=== PATIENT | female | born 1935 | race Caucasian/White ===

== ENCOUNTER 2018-08-23 09:53 | Outpatient (CLI) | payer MEDICARE, BC | END 2018-08-23 09:54 | disposition home or self-care (01) | LOC: BICMAMMO 09:53 | PROVIDERS: ATTEND Internal Medicine | DX: Z12.31 Encounter for screening mammogram for malignant neoplasm of breast (principal); M81.0 Age-related osteoporosis without current pathological fracture; M85.89 Other specified disorders of bone density and structure, multiple sites | CPT/HCPCS: 77063; 77067; 77080 ==

== ENCOUNTER 2018-09-01 10:54 | Outpatient (CLI) | payer MEDICARE, BC ==
--- NOTE | 2018-09-01 12:28 | RAD ---
RIGHT HP 2 VIEWS: HISTORY: Right hip pain. Trochanteric bursitis of the right hip. FINDINGS/IMPRESSION: There are mild degenerative changes in the right hip. No fracture, dislocation, or bony destruction is seen. POS: MICHELE
--- NOTE | 2018-09-01 13:20 | RAD ---
RADIOGRAPH THORACIC SPINE 2 VIEWS: DATE: 09/01/2018. HISTORY: An 82-year-old female with other specified dorsapathies thoracic, M53.84. COMPARISON: None. FINDINGS: There is diffuse osteopenia. There is mild lateral curvature. There is no high-grade collapse of an y of the thoracic vertebral bodies. There are multilevel degenerative disk changes at several levels . IMPRESSION: 1. No evidence of compression fracture. 2. Predominantly mild multilevel degenerative disk changes. 3. Osteopenia. POS: C
== END 2018-09-01 10:55 | disposition home or self-care (01) ==
LOC: BICRAD 10:54
PROVIDERS: ATTEND Internal Medicine Rheumatology
DX: M53.84 Other specified dorsopathies, thoracic region (principal); M70.61 Trochanteric bursitis, right hip; M51.34 Other intervertebral disc degeneration, thoracic region; M85.80 Other specified disorders of bone density and structure, unspecified site; M16.11 Unilateral primary osteoarthritis, right hip
CPT/HCPCS: 72070

== ENCOUNTER 2021-02-19 15:35 | Outpatient (CLI) | payer MEDICARE, BC | END 2021-02-19 15:36 | disposition home or self-care (01) | LOC: BICMAMMO 15:35 | PROVIDERS: ATTEND Internal Medicine Rheumatology | DX: M81.0 Age-related osteoporosis without current pathological fracture (principal); M85.88 Other specified disorders of bone density and structure, other site | CPT/HCPCS: 77080 ==

== ENCOUNTER 2021-03-24 12:37 | Emergency (ER) | payer MEDICARE, BC | END 2021-03-24 17:10 | disposition home or self-care (01) | LOC: ERS 12:37 | DX: S02.40FA Zygomatic fracture, left side, initial encounter for closed fracture (principal); S02.40DA Maxillary fracture, left side, initial encounter for closed fracture; S02.32XA Fracture of orbital floor, left side, initial encounter for closed fracture; W19.XXXA Unspecified fall, initial encounter | CPT/HCPCS: 70450; 70486 ==

== ENCOUNTER 2023-09-23 15:35 | Outpatient (CLI) | payer MEDICARE, BC | END 2023-09-23 15:36 | disposition home or self-care (01) | LOC: BICMAMMO 15:35 | PROVIDERS: ATTEND Internal Medicine Rheumatology | DX: M81.0 Age-related osteoporosis without current pathological fracture (principal) | CPT/HCPCS: 77080 ==

== ENCOUNTER 2024-01-17 11:07 | Inpatient (IN) | payer BC, MEDICARE ==
[2024-01-17] MEDS ORDERED: Morphine 2 MG/ML VIAL SLOW IVP PRN (11:49)
[2024-01-17] MEDS ORDERED: Ondansetron ODT 4 MG TAB PO PRN (11:49)
[2024-01-17] MEDS ORDERED: Dextrose 50% Abboject 50 ML SYRINGE SLOW IVP PRN (11:49)
[2024-01-17] MEDS ORDERED: Glucagon 1 MG/ML KIT IM PRN (11:49)
[2024-01-17] MEDS ORDERED: Dextrose 5% in Water 1,000 ML IV PRN (11:49)
[2024-01-17 11:54] LABS: #Basophils 0.1 thou/uL (0.0-0.2); #Eosinphils 0.1 thou/uL (0.0-0.7); #Monocytes 1.1 thou/uL (0.11-0.59); #Neutrophils 10.7 thou/uL (1.40-6.50); %Basophils 0.4 % (0.0-1.0); %Lymphocytes 5.3 % (21.0-51.0); %Monocytes 8.4 % (0.0-10.0); %Neutrophils 84.7 % (42.0-75.0); Hematocrit 40.6 % (36.0-47.0); Hemoglobin 13.2 g/dL (12.0-16.0); Mean Corpuscular HGB CONC 32.5 g/dL (32.0-36.0); Mean Corpuscular Hemoglobin 30.7 pg (27.0-31.0); Mean Corpuscular Volume 94.4 fl (78.0-98.0); Mean Platelet Volume 10.5 fL (7.4-10.4); Platelet Count 191 10x3/uL (130-400); RBC Distribution Width 12.3 % (11.5-14.5); White Blood Cell (WBC) Count 12.6 10x3/uL (4.8-10.8)
[2024-01-17 12:17] LABS: ALT (SGPT) 24 U/L (8-55); AST (SGOT) 21 U/L (5-34); Albumin 4.3 g/dL (3.4-4.8); Alkaline Phosphatase 54 U/L (40-110); Anion Gap 12 mmol/L (10-20); BUN (Urea Nitrogen) 17 mg/dL (9.8-20.1); Bilirubin, Total 0.7 mg/dL (0.2-1.2); Calc. Creatinine Clearance 0 mL/min (70-130); Calcium 8.9 mg/dL (7.8-10.44); Carbon Dioxide 28 mmol/L (23-31); Chloride 101 mmol/L (98-107); Estimated GFR 57; Globulin 3.1 g/dL (2.4-3.5); Glucose 115 mg/dL (83-110); Potassium 3.5 mmol/L (3.5-5.1); Protein, Total 7.4 g/dL (5.8-8.1); Sodium 137 mmol/L (136-145)
[2024-01-17 13:05] LABS: Prothrombin Time 13.2 sec (12.0-14.7)
[2024-01-17] MEDS ORDERED: CEFAZOLIN 2 GM VIAL ONE (15:00)
[2024-01-17] MEDS ORDERED: Sodium Chloride 0.9% 100 ML ONE (15:01)
[2024-01-17] MEDS ORDERED: PROPOFOL 20 ML ONE (15:05)
[2024-01-17] MEDS ORDERED: fentaNYL PF 100 MCG/2 ML SYRINGE ONE (15:21)
[2024-01-17] MEDS ORDERED: Rocuronium Bromide 10 MG/ML (10ML VIAL) ONE (15:31)
[2024-01-17] MEDS ORDERED: SUGAMMADEX SODIUM 200 MG/2 ML VIAL ONE (16:18)
[2024-01-17] MEDS: Acetaminophen 325 MG TAB PO PRN (21:36)
[2024-01-17] MEDS: CEFAZOLIN 2 GM in Sodium Chloride 0.9% 100 ML IVPB SCH ×2 (21:36→22:03)
[2024-01-17] MEDS: HYDROcodone/Acetaminophen 5/325 mg Tablet PO PRN (21:40)
[2024-01-17] MEDS: Ondansetron PF 4 MG/2 ML Vial IVP PRN (21:40)
[2024-01-18 00:51] VITALS: BMI 22.3
[2024-01-18 04:17] LABS: #Monocytes 1.2 thou/uL (0.11-0.59); #Neutrophils 12.2 thou/uL (1.40-6.50); %Basophils 0.3 % (0.0-1.0); %Eosinophils 0.1 % (0.0-10.0); %Monocytes 8.3 % (0.0-10.0); Mean Corpuscular HGB CONC 32.2 g/dL (32.0-36.0); Mean Corpuscular Hemoglobin 31.4 pg (27.0-31.0); Mean Platelet Volume 10.3 fL (7.4-10.4); Platelet Count 190 10x3/uL (130-400); RBC Distribution Width 12.8 % (11.5-14.5); Red Blood Cell (RBC) Count 2.77 mill/uL (4.20-5.40); White Blood Cell (WBC) Count 14.5 10x3/uL (4.8-10.8)
[2024-01-18 04:37] LABS: Hemoglobin 8.7 g/dL (12.0-16.0); Mean Corpuscular Volume 97.5 fl (78.0-98.0)
[2024-01-18 04:45] LABS: ALT (SGPT) 14 U/L (8-55); AST (SGOT) 15 U/L (5-34); Albumin 3.3 g/dL (3.4-4.8); Alkaline Phosphatase 40 U/L (40-110); Anion Gap 11 mmol/L (10-20); BUN (Urea Nitrogen) 18 mg/dL (9.8-20.1); Bilirubin, Total 0.4 mg/dL (0.2-1.2); Calc. Creatinine Clearance 27 mL/min (70-130); Calcium 7.7 mg/dL (7.8-10.44); Carbon Dioxide 25 mmol/L (23-31); Chloride 104 mmol/L (98-107); Estimated GFR 41; Globulin 2.4 g/dL (2.4-3.5); Glucose 141 mg/dL (83-110); Potassium 4.3 mmol/L (3.5-5.1); Protein, Total 5.7 g/dL (5.8-8.1); Sodium 136 mmol/L (136-145)
[2024-01-18] MEDS: Heparin 5,000 UNITS/ML VIAL SC SCH (09:33)
[2024-01-19 04:39] LABS: #Eosinphils 0.2 thou/uL (0.0-0.7); #Monocytes 1.6 thou/uL (0.11-0.59); #Neutrophils 8.7 thou/uL (1.40-6.50); %Basophils 0.3 % (0.0-1.0); %Eosinophils 1.5 % (0.0-10.0); %Lymphocytes 12.1 % (21.0-51.0); %Monocytes 13.2 % (0.0-10.0); %Neutrophils 72.4 % (42.0-75.0); Hematocrit 21.6 % (36.0-47.0); Hemoglobin 6.9 g/dL (12.0-16.0); Mean Corpuscular HGB CONC 31.9 g/dL (32.0-36.0); Mean Corpuscular Hemoglobin 31.1 pg (27.0-31.0); Mean Corpuscular Volume 97.3 fl (78.0-98.0); Mean Platelet Volume 10.4 fL (7.4-10.4); Platelet Count 145 10x3/uL (130-400); Red Blood Cell (RBC) Count 2.22 mill/uL (4.20-5.40)
[2024-01-19 20:30] LABS: #Basophils 0.1 thou/uL (0.0-0.2); #Eosinphils 0.2 thou/uL (0.0-0.7); #Monocytes 1.5 thou/uL (0.11-0.59); #Neutrophils 9.7 thou/uL (1.40-6.50); %Basophils 0.5 % (0.0-1.0); %Eosinophils 1.5 % (0.0-10.0); %Monocytes 11.5 % (0.0-10.0); %Neutrophils 76.8 % (42.0-75.0); Hematocrit 26.2 % (36.0-47.0); Hemoglobin 8.8 g/dL (12.0-16.0); Mean Corpuscular HGB CONC 33.6 g/dL (32.0-36.0); Mean Corpuscular Hemoglobin 31.8 pg (27.0-31.0); Mean Corpuscular Volume 94.6 fl (78.0-98.0); Mean Platelet Volume 10.5 fL (7.4-10.4); Platelet Count 149 10x3/uL (130-400); RBC Distribution Width 13.6 % (11.5-14.5); Red Blood Cell (RBC) Count 2.77 mill/uL (4.20-5.40); White Blood Cell (WBC) Count 12.6 10x3/uL (4.8-10.8)
[2024-01-20] MEDS: hydrALAZINE 20 MG/ML VIAL SLOW IVP PRN (05:40)
[2024-01-20 09:39] LABS: #Basophils 0.1 thou/uL (0.0-0.2); #Eosinphils 0.3 thou/uL (0.0-0.7); #Monocytes 1.2 thou/uL (0.11-0.59); #Neutrophils 9.6 thou/uL (1.40-6.50); %Basophils 0.6 % (0.0-1.0); %Eosinophils 2.1 % (0.0-10.0); %Lymphocytes 9.5 % (21.0-51.0); %Monocytes 9.9 % (0.0-10.0); %Neutrophils 77.5 % (42.0-75.0); Hematocrit 26.4 % (36.0-47.0); Hemoglobin 9.1 g/dL (12.0-16.0); Mean Corpuscular HGB CONC 34.5 g/dL (32.0-36.0); Mean Corpuscular Hemoglobin 32.2 pg (27.0-31.0); Mean Corpuscular Volume 93.3 fl (78.0-98.0); Mean Platelet Volume 10.6 fL (7.4-10.4); Platelet Count 184 10x3/uL (130-400); RBC Distribution Width 13.9 % (11.5-14.5); Red Blood Cell (RBC) Count 2.83 mill/uL (4.20-5.40); White Blood Cell (WBC) Count 12.4 10x3/uL (4.8-10.8)
[2024-01-20 09:59] LABS: Anion Gap 10 mmol/L (10-20); BUN (Urea Nitrogen) 16 mg/dL (9.8-20.1); Calc. Creatinine Clearance 43 mL/min (70-130); Calcium 8.3 mg/dL (7.8-10.44); Carbon Dioxide 23 mmol/L (23-31); Chloride 106 mmol/L (98-107); Estimated GFR 73; Glucose 120 mg/dL (83-110); Potassium 3.7 mmol/L (3.5-5.1); Sodium 135 mmol/L (136-145)
[2024-01-20] MEDS: Polyethylene Glycol 3350 17 GM Packet PO SCH (12:31)
[2024-01-20] MEDS: Acetaminophen 325 MG TAB PO SCH (12:32)
[2024-01-20] MEDS: Senokot S 8.6-50 MG TAB PO SCH (20:48)
[2024-01-21] MEDS: Polyethylene Glycol 3350 17 GM Packet PO SCH (11:00)
[2024-01-23] MEDS: traMADol HCl 50 MG TAB PO PRN (05:46)
[2024-01-23] MEDS: Enoxaparin 40 MG (0.4 mL) SYRINGE SC SCH (11:00)
[2024-01-23] MEDS: ALPRAZolam 0.5 MG TAB PO PRN (21:32)
[2024-01-23] MEDS: Rosuvastatin 5 MG TAB PO SCH (21:32)
[2024-01-23] MEDS: FLUoxetine HCl 20 MG CAP PO SCH (21:32)
[2024-01-24] MEDS: Lisinopril 5 MG TAB PO SCH (08:40)
[2024-01-24] MEDS: Cholecalciferol (Vitamin D3) 400 UNITS TAB PO SCH (08:41)
[2024-01-24] MEDS ORDERED: Acetaminophen 325 MG TAB PO SCH (09:34)
[2024-01-24] MEDS: Acetaminophen 500 MG TAB PO SCH (11:52)
[2024-01-26 11:55] LABS: Red Blood Cell (RBC) Count 3.27 mill/uL (4.20-5.40); White Blood Cell (WBC) Count 11.6 10x3/uL (4.8-10.8)
[2024-01-26 11:56] LABS: #Basophils 0.1 thou/uL (0.0-0.2); #Eosinphils 0.4 thou/uL (0.0-0.7); #Monocytes 1.1 thou/uL (0.11-0.59); #Neutrophils 8.4 thou/uL (1.40-6.50); %Basophils 0.9 % (0.0-1.0); %Eosinophils 3.4 % (0.0-10.0); %Lymphocytes 11.5 % (21.0-51.0); %Monocytes 9.7 % (0.0-10.0); %Neutrophils 72.4 % (42.0-75.0); Hematocrit 32.5 % (36.0-47.0); Hemoglobin 10.4 g/dL (12.0-16.0); Mean Corpuscular Hemoglobin 31.8 pg (27.0-31.0); Mean Corpuscular Volume 99.4 fl (78.0-98.0); Mean Platelet Volume 9.8 fL (7.4-10.4); Platelet Count 449 10x3/uL (130-400); RBC Distribution Width 13.7 % (11.5-14.5)
[2024-01-26 12:20] LABS: ALT (SGPT) 21 U/L (8-55); AST (SGOT) 29 U/L (5-34); Albumin 3.3 g/dL (3.4-4.8); Alkaline Phosphatase 67 U/L (40-110); Anion Gap 10 mmol/L (10-20); BUN (Urea Nitrogen) 24 mg/dL (9.8-20.1); Bilirubin, Total 1.1 mg/dL (0.2-1.2); Calc. Creatinine Clearance 36 mL/min (70-130); Calcium 8.8 mg/dL (7.8-10.44); Carbon Dioxide 23 mmol/L (23-31); Chloride 105 mmol/L (98-107); Estimated GFR 60; Glucose 105 mg/dL (83-110); Potassium 4.2 mmol/L (3.5-5.1); Protein, Total 6.3 g/dL (5.8-8.1); Sodium 134 mmol/L (136-145)
[2024-01-27 04:03] LABS: #Basophils 0.1 thou/uL (0.0-0.2); #Eosinphils 0.4 thou/uL (0.0-0.7); #Monocytes 1.3 thou/uL (0.11-0.59); #Neutrophils 7.6 thou/uL (1.40-6.50); %Basophils 0.9 % (0.0-1.0); %Eosinophils 3.3 % (0.0-10.0); %Lymphocytes 18.5 % (21.0-51.0); %Monocytes 11.2 % (0.0-10.0); %Neutrophils 64.5 % (42.0-75.0); Hematocrit 29.4 % (36.0-47.0); Hemoglobin 9.4 g/dL (12.0-16.0); Mean Platelet Volume 9.7 fL (7.4-10.4); Platelet Count 387 10x3/uL (130-400); RBC Distribution Width 13.6 % (11.5-14.5); Red Blood Cell (RBC) Count 3.03 mill/uL (4.20-5.40); White Blood Cell (WBC) Count 11.7 10x3/uL (4.8-10.8)
[2024-01-27 04:34] LABS: ALT (SGPT) 18 U/L (8-55); AST (SGOT) 25 U/L (5-34); Albumin 3.2 g/dL (3.4-4.8); Alkaline Phosphatase 65 U/L (40-110); Anion Gap 10 mmol/L (10-20); BUN (Urea Nitrogen) 25 mg/dL (9.8-20.1); Bilirubin, Total 0.9 mg/dL (0.2-1.2); Calc. Creatinine Clearance 36 mL/min (70-130); Calcium 8.5 mg/dL (7.8-10.44); Carbon Dioxide 22 mmol/L (23-31); Chloride 106 mmol/L (98-107); Estimated GFR 59; Globulin 2.7 g/dL (2.4-3.5); Glucose 89 mg/dL (83-110); Potassium 4.3 mmol/L (3.5-5.1); Protein, Total 5.9 g/dL (5.8-8.1); Sodium 134 mmol/L (136-145)
[2024-01-27 08:32] VITALS: TEMP 98.2
[2024-01-27 13:05] VITALS: BP 129/55
== END 2024-01-27 14:28 | disposition home health service (06) | DRG 522 ==
LOC: ERS 11:07 → ERHOLD 11:54 → SURG A 15:00 → SURG B 18:05
PROVIDERS: ADMIT Surgery; ATTEND Surgery
PROC: 0SRR0JZ Replacement of Right Hip Joint, Femoral Surface with Synthetic Substitute, Open Approach (ICD-10-PCS; principal; 2024-01-17)
PROC: 30233N1 Transfusion of Nonautologous Red Blood Cells into Peripheral Vein, Percutaneous Approach (ICD-10-PCS; 2024-01-19)
DX: S72.011A Unspecified intracapsular fracture of right femur, initial encounter for closed fracture (principal); N17.9 Acute kidney failure, unspecified; D62 Acute posthemorrhagic anemia; M21.611 Bunion of right foot; Z96.649 Presence of unspecified artificial hip joint; Z79.899 Other long term (current) drug therapy; Z79.890 Hormone replacement therapy; Z98.890 Other specified postprocedural states
CPT/HCPCS: 36415; 36430; 70450; 71045; 72125; 72170; 80048; 80053; 85025; 85610; 86850; 86900; 86901; 93005; C1776; G0390; J0360; J1644; J1650; J2405; J2704; J3490; P9016

== ENCOUNTER 2025-09-24 13:31 | Outpatient (CLI) | payer MEDICARE | END 2025-09-24 13:32 | disposition home or self-care (01) | LOC: BICMAMMO 13:31 | PROVIDERS: ATTEND Internal Medicine Rheumatology | DX: M81.0 Age-related osteoporosis without current pathological fracture (principal) | CPT/HCPCS: 77080 ==

== ENCOUNTER 2025-10-18 16:18 | Emergency (ER) | payer MEDICARE ==
[~2025-10-18 16:18] MED LIST: Iopamidol-370 76% 500 ML MDV (1 ML CHARGE) ONE
[2025-10-18 17:37] LABS: Bacteria/HPF 4+ HPF (None Seen); CAUTI Indications for Culture Pelvic or flank pain; Glucose, Urine (Dipstick) Normal (Negative); Leukocyte 500 Leu/uL (Negative); Protein, Urine (Dipstick) 100 mg/dL (Neg-Trace); Specific Gravity, Urine 1.029 (1.002-1.036); WBC/HPF Greater than 50 HPF (0-3)
[2025-10-18 17:38] LABS: Urine Culture Reflex Yes Yes
[2025-10-18 17:47] LABS: #Basophils 0.08 10x3/uL (0.0-0.2); #Eosinophils 0.21 10x3/uL (0.0-0.7); #Monocytes 1.50 10x3/uL (0.11-0.59); #Neutrophils 10.37 10x3/uL (1.40-6.50); %Basophils 0.6 % (0.0-1.0); %Eosinophils 1.6 % (0.0-10.0); %Lymphocytes 9.6 % (21.0-51.0); %Monocytes 11.1 % (0.0-10.0); %Neutrophils 76.8 % (42.0-75.0); Hematocrit 36.7 % (36.0-47.0); Hemoglobin 11.8 g/dL (12.0-16.0); Mean Corpuscular Hemoglobin 29.7 pg (27.0-31.0); Mean Corpuscular Volume 92.4 fL (78.0-98.0); Platelet Count 311 10x3/uL (130-400); Red Blood Cell (RBC) Count 3.97 mill/uL (4.20-5.40); White Blood Cell (WBC) Count 13.50 10x3/uL (4.8-10.8)
[2025-10-18 18:05] LABS: Anion Gap 15 mmol/L (10-20); BUN (Urea Nitrogen) 19 mg/dL (9.8-20.1); Calc. Creatinine Clearance 0 mL/min (70-130); Carbon Dioxide 25 mmol/L (23-31); Chloride 101 mmol/L (98-107); Potassium 3.9 mmol/L (3.5-5.1); Sodium 137 mmol/L (136-145)
[2025-10-18 18:06] LABS: ALT (SGPT) 56 U/L (Less than 34); AST (SGOT) 66 U/L (11-34); Albumin 3.4 g/dL (3.1-4.5); Alkaline Phosphatase 68 U/L (40-110); Bilirubin, Total 0.3 mg/dL (0.3-1.2); Calcium 9.5 mg/dL (7.8-10.44); Globulin 4.4 g/dL (2.4-3.5); Glucose 93 mg/dL (83-110); Magnesium 2.1 mg/dL (1.6-2.6)
== END 2025-10-18 20:48 | disposition home or self-care (01) ==
LOC: ERS 16:18
DX: J34.89 Other specified disorders of nose and nasal sinuses (principal); N39.0 Urinary tract infection, site not specified; R91.8 Other nonspecific abnormal finding of lung field; I10 Essential (primary) hypertension; E03.9 Hypothyroidism, unspecified; Z79.890 Hormone replacement therapy
CPT/HCPCS: 71275; 74177; 81001; 83605; 83735; 84484; 87040; 87077; 87086; 87149 ×2; 87186; 87428; 93005; J2543; Q9967; 80053; 84443; 85025; 96374